=== PATIENT | female | born 1990 | race Two or more races ===

== ENCOUNTER 2018-05-24 10:10 | Emergency (ER) | payer MEDICAID ==
[~2018-05-24] VITALS: Ht 157.5 cm; Wt 81.8 kg
[2018-05-24 10:43] LABS: BASOPHILS % (AUTO) 0.4 % (0-1); EOSINOPHILS # (AUTO) 0.1 X10'3 (0-0.9); EOSINOPHILS % (AUTO) 1.7 % (0-6); HEMATOCRIT 38.1 % (35.0-45.0); HEMOGLOBIN 13.2 g/dl (12.0-16.0); LYMPHOCYTES # (AUTO) 2.1 X10'3 (1.1-4.8); LYMPHOCYTES % (AUTO) 29.7 % (21-51); MEAN CORPUSCULAR HEMOGLOBIN 30.4 PG (27.0-31.0); MEAN CORPUSCULAR HGB CONC 34.6 % (33.0-36.5); MEAN CORPUSCULAR VOLUME 87.9 FL (78-98); MEAN PLATELET VOLUME 7.4 FL (7.4-10.4); MONOCYTES # (AUTO) 0.6 X10'3 (0-0.9); MONOCYTES % (AUTO) 7.8 % (2-12); NEUTROPHILS # (AUTO) 4.3 X10'3 (1.8-7.7); NEUTROPHILS % (AUTO) 60.4 % (42-75); PLATELET COUNT 232 X10'3 (140-440); RED BLOOD COUNT 4.33 X10'6 (4.20-5.60); RED CELL DISTRIBUTION WIDTH 13.9 % (11.5-14.5); WHITE BLOOD COUNT 7.1 X10'3 (4.5-11.0)
[2018-05-24 10:58] LABS: ALANINE AMINOTRANSFERASE 26 U/L (12-78); ALBUMIN 3.6 G/DL (3.4-5.0); ALBUMIN/GLOBULIN RATIO 0.9 (1.1-1.5); ALKALINE PHOSPHATASE 112 IU/L (46-116); ANION GAP 9 (8-16); ASPARTATE AMINO TRANSFERASE 20 U/L (10-37); BILIRUBIN,TOTAL 0.5 MG/DL (0.1-1.0); BLOOD UREA NITROGEN 13 MG/DL (7-18); BUN/CREATININE RATIO 23.2 (6.6-38.0); CALCIUM 8.5 MG/DL (8.5-10.1); CHLORIDE 103 MMOL/L (99-107); CREATININE 0.56 MG/DL (0.40-0.90); GLUCOSE 88 MG/DL (70-104); SODIUM 138 MMOL/L (135-145); TOTAL CARBON DIOXIDE 25.9 MMOL/L (24-32); TOTAL PROTEIN 7.6 G/DL (6.4-8.2); eGFR > 90 ML/MIN
[2018-05-24 11:21] LABS: CLARITY,URINE CLEAR (Clear); COLOR,URINE YELLOW (Yellow); GLUCOSE, URINE NEGATIVE (Neg); KETONES,URINE NEGATIVE (Neg); LEUKOCYTE ESTERASE ,URINE NEGATIVE (Neg); NITRITES, URINE NEGATIVE (Neg); OCCULT BLOOD,URINE NEGATIVE (Neg); PH,URINE 6.5 (4.8-8.0); PROTEIN,URINE NEGATIVE (Neg); UROBILINOGEN,URINE 0.2 E.U/dL (0.2-1.0)
[2018-05-24 11:22] LABS: URINE HCG NEGATIVE (NEG)
[2018-05-24 11:28] VITALS: BP 109/70
[2018-05-24 11:41] LABS: UA COLLECTION TYPE VOIDED
== END 2018-05-24 13:27 | disposition home or self-care (01) ==
LOC: ER 10:10
DX: R10.2 Pelvic and perineal pain (principal); R10.32 Left lower quadrant pain; Z88.1 Allergy status to other antibiotic agents
CPT/HCPCS: 36415; 76856; 80053; 81003; 81025; 85025; 85610; 99285

== ENCOUNTER 2019-02-22 16:18 | Emergency (ER) | payer MEDICAID ==
[~2019-02-22] VITALS: Ht 157.5 cm; Wt 98.0 kg
[2019-02-22 16:19] VITALS: BP 154/73
--- NOTE | 2019-02-22 16:53 | NUR ---
IRRIGATED RT EAR WITH WARM WATER AND HYDROGEN PEROXIDE WITH 30ML, EAR WAX CAME OUT AND PT SAID SHE COULD HEAR BETTER, Anabela DELGADO AWARE
== END 2019-02-22 17:15 | disposition home or self-care (01) ==
LOC: ER 16:18
DX: H61.21 Impacted cerumen, right ear (principal); Z88.1 Allergy status to other antibiotic agents
CPT/HCPCS: 69209; 99282

== ENCOUNTER 2025-10-02 17:47 | Emergency (ER) | payer BC, MEDICAID ==
[~2025-10-02] VITALS: Ht 157.5 cm; Wt 106.1 kg
[2025-10-02 17:49] VITALS: TEMP 96.8
[2025-10-02 18:31] LABS: MEAN PLATELET VOLUME 7.6 FL (7.4-10.4); RED CELL DISTRIBUTION WIDTH 13.4 % (11.5-14.5)
[2025-10-02 18:48] LABS: CREATININE 0.76 MG/DL (0.40-0.90); TOTAL CARBON DIOXIDE 25.6 MMOL/L (24-32); eCRCL 80 ML/MIN; eGFR 86 ML/MIN
[2025-10-02 18:51] LABS: URINE HCG NEGATIVE (NEG)
[2025-10-02 18:52] LABS: LEUKOCYTE ESTERASE ,URINE SMALL (Neg); NITRITES, URINE POSITIVE (Neg); OCCULT BLOOD,URINE LARGE (Neg)
[2025-10-02 19:01] LABS: UA COLLECTION TYPE CLN CATCH MIDSTREAM
[2025-10-02 19:06] LABS: SQUAMOUS EPITHELIAL CELL,UR FEW /LPF (FEW)
[2025-10-02] MEDS: ketorolac trometh 30MG/ML vial 30 MG/ML VIAL IM ONE (19:20)
--- NOTE | 2025-10-02 19:33 | RADIOLOGY REPORT ---
Exam: CT CT ABDOMEN PELVIS History: flank pain Comparison Study: None TECHNIQUE: Multidetector CT of the abdomen AND PELVIS without IV contrast. Axial, coronal and sagittal multiplanar reformats were obtained from the axial data set by the technologist. Radiation Dose Information: CT Dose: CTDI volume is 35.63 mGy. Dose-length product is 1707.71 mGy*cm FINDINGS: Severe basilar atelectasis. Partially visualized heart is unremarkable. Mild hepatosplenomegaly. Otherwise, liver, spleen, gallbladder, pancreas and adrenal glands are unremarkable. 1.1 x 1.6 cm calculus over the distal Left renal pelvis with associated [id number] left sided Hydronephrosis. Nonobstructing calculus of the left lower lung zone measuring up to 0.9 cm. 3 mm right renal upper pole nonobstructing calculi. Mild Left renal parapelvic fat stranding Mild right renal pelviectasis. The bilateral ureters are unremarkable. Urinary bladder is unremarkable. Intrauterine device is noted in place. Liver Uterus is unremarkable. Stomach is unremarkable. Small bowel loops unremarkable. The appendix is unremarkable. Large amount of fecal material within the ascending colon with moderate amount of fecal material within the proximal transverse colon. Distal rectal wall thickening. The remainder of the large bowel is unremarkable. No evidence of intraperitoneal free air or free fluid. No evidence of aortic aneurysm. Slightly prominent mesenteric lymph node measuring up to 0.8 cm of the right lower abdominal quadrant. Tiny fat containing umbilical hernia. The soft tissues unremarkable. No evidence of acute osseous abnormalities. IMPRESSION: 1.1 x 1.6 cm calculus over the distal Left renal pelvis with associated [id number] left sided Hydronephrosis. Additional nonobstructing bilateral renal calculi. Mild right renal pelviectasis with no obstructing calculus noted. Distal rectal wall thickening which may be due to inadequate distention with mild proctitis not completely excluded. Slightly prominent mesenteric lymph nodes which may be reactive.
--- NOTE | 2025-10-02 19:52 | Physician Documentation ---
History of Present Illness ~ Chief Complaint: Flank Pain Stated Complaint: KIDNEY PAIN Time Seen by MD: 18:47 Primary Medical Doctor: [facility] [place] Mode of Arrival: POV HPI 35-year-old female with a history of kidney stones presents to the ED with a complaint of left flank pain x1 day. He has any fevers but reports difficult to get into a comfortable position.. She states she is normally generally healthy. denies any nausea vomiting diarrhea Medication Reconciliation Allergies: Coded Allergies: ciprofloxacin (Verified Allergy, Unknown, HIVES, 10/02/25) sulfamethoxazole (Verified Allergy, Unknown, 10/02/25) trimethoprim (Verified Allergy, Unknown, 10/02/25) Scheduled Amox Tr/Potassium Clavulanate (Augmentin 875-125 Tablet), 1 TAB PO Q12H Past Medical History Past Medical History: No Pertinent History Past Surgical History: noncontributory Smoking Status: Never smoker Alcohol Use: Occasionally Drug Use: none Review of Systems All Other Systems at this time: Reviewed and Negative ROS As stated above in the HPI, otherwise all systems are reviewed and negative. Physical Exam Vital Signs: Temperature: 96.8, Source: Temporal, Heart Rate: 106, Respiratory Rate: 18, BP: 145/97, Pulse Oximetry: 99, Weight: 106.100 Oxygen Flow Rate: 0 Physical Exam General: Alert, no apparent distress. Respiratory: Lungs clear, no respiratory distress. Cardiovascular: Regular rate and rhythm, no murmurs. Gastrointestinal: Soft, nontender, nondistended. Bowels sounds present. negativev CVA tenderness. Neurologic: Oriented x4. Psychiatric: Normal mood and affect. Skin: Normal color, warm and dry. No edema, no ecchymosis. 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 30mg/ml) 30 mg ONCE ONCE IM 10/02/25 19:10 10/02/25 19:11 DC 10/02/25 19:20 30 MG (Rocephin 1GM IM kit (w/lidocaine diluent)) 1,000 mg ONCE ONCE IM 10/02/25 19:55 10/02/25 19:56 DC 10/02/25 20:26 1,000 MG Vital Signs 10/02/25 10/02/25 10/02/25 17:49 19:22 20:35 Temp 96.8 Pulse 106 97 Resp 18 14 B/P (MAP) 145/97 141/93 Pulse Ox 99 97 O2 Flow Rate 0 Laboratory Tests Test 10/02/25 17:56 10/02/25 18:15 Urine Specimen Description Cln catch midstream Urine Color Yellow Urine Clarity Clear Urine pH 5.5 Urine Specific [place] 1.025 Urine Protein Negative Urine Glucose (UA) Negative Urine Ketones Negative Urine Occult Blood Large H Urine Nitrite Positive H Urine Bilirubin Negative Urine Urobilinogen 0.2 Urine Leukocyte Esterase Small H Urine RBC 20-50 Urine WBC Tntc H Urine Squamous Epithelial Cells Few Urine Bacteria 2+ Urine Culture Indicated Indicated Volume Urine Centrifuged 10 ml Urine HCG, Qualitative Negative Urine Comment White Blood Count 10.8 Red Blood Count 4.44 Hemoglobin 13.2 Hematocrit 38.7 Mean Corpuscular Volume 87.2 Mean Corpuscular Hemoglobin 29.6 Mean Corpuscular Hemoglobin Concent 34.0 Red Cell Distribution Width 13.4 Platelet Count 303 Mean Platelet Volume 7.6 Neutrophils (%) (Auto) 80.4 H Lymphocytes (%) (Auto) 12.8 L Monocytes (%) (Auto) 5.8 Eosinophils (%) (Auto) 0.4 Basophils (%) (Auto) 0.6 Neutrophils # (Auto) 8.7 H Lymphocytes # (Auto) 1.4 Monocytes # (Auto) 0.6 Eosinophils # (Auto) 0.0 Basophils # (Auto) 0.1 CBC Comment Sodium Level 140 Potassium Level 3.8 Chloride Level 105 Carbon Dioxide Level 25.6 Anion Gap 9 Blood Urea Nitrogen 12 Creatinine 0.76 Estimated GFR/1.73 m2 86 BUN/Creatinine Ratio 15.8 Glucose Level 109 H Calcium Level 9.3 Total Bilirubin 0.3 Aspartate Amino Transf (AST/SGOT) 17 Alanine Aminotransferase (ALT/SGPT) 19 Alkaline Phosphatase 89 Total Protein 8.6 H Albumin 4.2 Globulin 4.4 H Albumin/Globulin Ratio 1.0 L Lipase 29 Chemistry Comments Microbiology Date/Time Source Procedure Growth Status 10/02/25 19:02 Urine Clean Catch Midstream Urine Culture - Preliminary Culture received. Resulted Medical Decision Making Additional information obtaine: N/A Findings I spoke to Dr. Knapp about this patient who is the on-call urologists. She has a very large kidney stone at the renal pelvis on the left side in addition she has notable UTI with positive nitrites and RBCs. She is currently hemodynamically stable with no elevations in white blood cell count she does not present febrile and she is nontoxic appearing. Based on these findings Dr. Knapp recommended that she has a very close follow up tomorrow as she will unlikely pass the stone. Addition to placing her on antibiotics. Urinary Diff Dx:Considerations: Include: AAA, , Aortic dissection, Appendicitis, Bowel obstruction, Cholelithiasis, Choleangitis, DJD, Ectopic , Hepatitis, HNP, Impaction, Intrauterine , Musculoskeletal pain, Ovarian torsion, Pancreatitis, PID, Post-Op complication, Pyelonephritis, Renal failure, Strain, Urinary Obstruction, Urolithiasis, Urinary retention, UTI, Vaginitis, Other Genital Diff Dx:Considerations: Include: -Complete, - Incomplete, -Inevitable, Ablortion-Missed, -Threatened, Abruptio placentae, Bartholin abscess, Bartholin cyst, Blood loss anemia, Constipation, Cervicitis, Dsymenorrhea, Ectopic , Foreign body, Hormonal, Hidradenitis suppurativa, Intrauterine , Menorrhagia, Menometrorrhagia, Menstrual bleeding, Myomatous uterus, Perianal abscess, Physiologic discharge, Pinworms, PID, Placenta previa, , Precipitous Hct, Trauma, UTI, Vaginitis(osis)-Atrophic, Vaginitis, Vaginitis(osis)-Bacterial, Vaginitis(osis)- Candidal, Vaginitis(osis)-Contact, Vaginitis(osis)-Herpes, Vaginitis(osis)- Trich., Other Departure Disposition: HOME / SELF CARE / HOMELESS Impression: Primary Impression: Acute urinary tract infection Additional Impression: Calculus of kidney Condition: Improved Additional Instructions: Sure to call Dr. Knapp 1st thing in the morning for a close follow up at his urologic office. He is aware that your coming and we will treat you accordingly Referrals: NO PRIMARY CARE PROVIDER (PCP) RISA KNAPP MD Prescriptions Amox Tr/Potassium Clavulanate (Augmentin 875-125 Tablet) 1 Each Tablet 1 TAB PO Q12H for 14 Days, #28 TAB Prov: [employer]INE OPERATOR 10/02/25 Signature Scribe Signature: 8 Attestation: Scribed for Skip Wolf Pipe [employer] by Skip Arnold NP . 10/02/25 23:08 SKIP WOLF NP Oct 02, 2025 19:52
[2025-10-02] MEDS ORDERED: AMOX-117 PO (19:54)
[2025-10-02] MEDS: CefTRIAXone 1000mg IM Kit (w/lidocaine diluent) IM ONE (20:26)
[2025-10-02 20:35] VITALS: BP 141/93; PULSE 97; RESP 14; O2SAT 97
== END 2025-10-02 20:37 | disposition home or self-care (01) ==
LOC: ER 17:47
DX: N39.0 Urinary tract infection, site not specified (principal); N20.0 Calculus of kidney; Z88.1 Allergy status to other antibiotic agents; Z88.2 Allergy status to sulfonamides; Z87.442 Personal history of urinary calculi; Z88.8 Allergy status to other drugs, medicaments and biological substances; Z72.89 Other problems related to lifestyle
CPT/HCPCS: 36415; 74176; 80053; 81001; 81025; 83690; 85025; 87088; 96372; 99285; J0696; J1885; 87077; 87186